=== PATIENT | male | born 2000 | race Caucasian/White ===

== ENCOUNTER 2022-04-25 10:32 | Outpatient (CLI) | payer BC, SELFPAY ==
--- NOTE | 2022-04-25 11:15 | MR_ITS ---
[facility] [address] [facility] [address] Phone:?[phone] Fax:?[phone] Referring Physician Information: Dusty Correa M.D. [id number] [facility] [address] Phone:?[phone] Fax:?[phone] Patient:Vesna Hanson D.O.B:?2000 Sex:?Male Phone:?[phone] [facility] MRN:?[id number] Exam Date:?04/25/2022 ? EXAM: MRI EXAMINATION OF THE RIGHT HIP CLINICAL INFORMATION: The patient is a 21-year-old with right hip pain. Evaluate for femoral stress fracture. PRIOR SURGERY: None reported. COMPARISON STUDIES: There are no prior studies available for comparison. TECHNICAL INFORMATION: Using a 1.5T MR scanner: 4.0 mm?coronals: PD, T2 5.0 mm?sagittals: PD, T2 4.0 mm?axials: PD, T2FS 5.0 mm?coronals: T1, STIR of pelvis including hips FINDINGS: Hip joint: The hip joint space is preserved. There is a mild to moderate effusion. Articular Cartilage: The articular cartilage of the femoral head and acetabulum is preserved. No chondral defects or unstable chondral segments are identified. No intraarticular loose bodies are identified. Labrum: Linear tearing of the anterior portion of the right acetabular labrum is present and can be seen on oblique axial series 6 image 12. The superior and posterior portions of the labrum appear intact. No paralabral ganglion cyst formation is identified. Proximal femur: Increased fat-suppressed signal intensity can be seen involving the central and medial aspects of the femoral neck on coronal series 2 image 16, extending into the lesser trochanteric region. The findings are also seen on axial series 7 image 21 and there is a small linear area of subcortical fracture seen on coronal series 4 image 14, coronal series 2 image 15, and on sagittal series 8 image 16. The findings are in keeping with a stress injury of the right proximal femur. No evidence for complete fracture is seen. No other bony injuries of the proximal femur are present. There is no evidence for avascular necrosis. No definite cam lesions are identified. There are no fibrocystic osseous lesions. Acetabulum: The acetabulum is intact and normal in appearance. There are no periacetabular ossicles or subcortical marrow edema. There is no definite retroversion or osseous over coverage. There are no definite abnormalities in acetabular morphology. The ligamentum teres is intact. Myotendinous Structures: The greater trochanteric attachments of the gluteus medius and gluteus minimus are normal. The common hamstring tendon origin is normal. The adductors and flexors appear unremarkable. Bursae: There is no evidence of iliopsoas, greater trochanteric or ischial bursal inflammation. Pelvic soft tissues: The soft tissues of the pelvis appear otherwise preserved. There is no evidence of soft tissue mass or adenopathy. No acute intrapelvic abnormalities are seen. Pelvic osseous structures: Large [id number] coronal survey images show no evidence of a pelvic fracture or demonstrable stress injury. The sacrum and SI joints appear normal. The symphysis pubis is normal in appearance. Lumbosacral junction: No significant degenerative disc disease is identified at the lumbosacral junction. CONCLUSION: 1. Stress fracture involving the right proximal femur as described above. No other bony abnormalities of the proximal femur are seen and there is no evidence for avascular necrosis. 2. Mild to moderate right hip joint effusion. 3. Linear tearing of the anterior aspect of the right acetabular labrum. 4. No chondral injuries along the weightbearing surfaces of the right hip are present. 5. No musculotendinous abnormalities about the right hip or pelvis are seen. [facility] Electronically signed on 04/25/2022 12:33:00 PM by Shakir Peterson M.D.
== END 2022-04-25 10:33 | disposition home or self-care (01) ==
PROVIDERS: PCP Family Medicine; Visit Provider Family Medicine
DX: M25.551 Pain in right hip (principal); M84.351A Stress fracture, right femur, initial encounter for fracture; M25.451 Effusion, right hip; S73.101A Unspecified sprain of right hip, initial encounter
CPT/HCPCS: 73721